=== PATIENT | female | born 1995 | race Hispanic/Latino ===

== ENCOUNTER 2016-08-09 20:26 | Emergency (ER) | payer OTHER ==
[2016-08-09 20:31] VITALS: BP 144/60; RESP 18; TEMP 98.6; O2SAT 99
--- NOTE | 2016-08-10 00:18 | ED PDOC ---
Lower Extremity Pain/Injury Time Seen by Provider: 08/09/16 20:44 Chief Complaint (Nursing): Lower Extremity Problem/Injury Chief Complaint (Provider): ankle injury History Per: Patient Additional Complaint(s): pt arrives for eval of left ankle pain after tripping over something. No obvious deformity. Denies medical hx. Past Medical History Reviewed: Historical Data, Nursing Documentation, Vital Signs Vital Signs: Last Vital Signs Temp 98.6 F 08/09/16 20:29 Pulse 93 H 08/09/16 20:29 Resp 18 08/09/16 20:29 BP 144/60 08/09/16 20:29 Pulse Ox 99 08/09/16 20:29 - Medical History PMH: No Chronic Diseases - Family History Family History: States: No Known Family Hx - Social History Current smoker - smoking cessation education provided: No Alcohol: None Drugs: Denies - Home Medications Home Medications: Ambulatory Orders Medication Instructions Recorded Naproxen [Naprosyn Tab] 375 mg PO BID #20 tab 08/09/16 - Allergies Allergies/Adverse Reactions: Allergies Allergy/AdvReac Type Severity Reaction Status Date / Time No Known Allergies Allergy Verified 08/09/16 20:29 Review of Systems ROS Statement: Except As Marked, All Systems Reviewed And Found Negative Musculoskeletal: Positive for: Foot Pain Physical Exam - Reviewed Nursing Documentation Reviewed: Yes Vital Signs Reviewed: Yes - Physical Exam Appears: Positive for: Well, Non-toxic, No Acute Distress Skin: Positive for: Normal Color, Warm, DRY Extremity: Positive for: Other (L ankle tender lateral maleolus w/ edema. medial maleolus, base 5th MT nontender. n/v intact distally. ambulates w/ pain. ) Neurologic/Psych: Positive for: Alert, Oriented. Negative for: Motor/Sensory Deficits - ECG O2 Sat by Pulse Oximetry: 99 Medical Decision Making Medical Decision Making: L ankle xray no fx no dislocation. will gary, refer to ortho. Disposition - Clinical Impression Clinical Impression: Ankle sprain - Patient ED Disposition Is Patient to be Admitted: No - Disposition Referrals: Violeta Hogan MD [Staff Provider] - Disposition: Routine/Home Disposition Time: 00:18 Condition: GOOD Prescriptions: Naproxen [Naprosyn Tab] 375 mg PO BID #20 tab Instructions: Ankle Sprain (ED) Forms: [facility] ED School/Work Excuse
[2016-08-10 00:50] VITALS: PULSE 78
--- NOTE | 2016-08-10 10:01 | RAD ---
PROCEDURE: Left Ankle Radiographs. HISTORY: injury COMPARISON: None FINDINGS: BONES: Normal. No fracture. JOINTS: Normal. No osteoarthritis. Ankle mortise maintained. Talar dome intact SOFT TISSUES: Normal. OTHER FINDINGS: None. IMPRESSION: Normal left ankle radiographs.
== END 2016-08-09 23:49 | disposition home or self-care (01) ==
LOC: H.ER 20:26
DX: S99.912A Unspecified injury of left ankle, initial encounter (principal); W19.XXXA Unspecified fall, initial encounter; Y92.89 Other specified places as the place of occurrence of the external cause